=== PATIENT | male | born 1965 | race Caucasian/White ===

== ENCOUNTER 2020-05-31 08:16 | Emergency (ER) | payer OTHER, SELFPAY ==
--- NOTE | ~2020-05-31 | XR_ITS ---
EXAMINATION: XR shoulder RT min 2V DATE: 05/31/2020 09:10 INDICATION: Right shoulder pain. TECHNIQUE: 4 views of right shoulder were obtained. COMPARISON: Right shoulder radiographs 09/05/2019 FINDINGS: Bone alignment is normal. No fracture. There is mild osteoarthritis of glenohumeral joint a nd moderate osteoarthritis of acromioclavicular joint. IMPRESSION: 1. Polyarticular osteoarthritis. Reviewed, dictated and finalized at location A.
--- NOTE | ~2020-05-31 | XR_ITS ---
EXAMINATION: XR chest 2V DATE: 05/31/2020 09:10 INDICATION: Right chest pain. TECHNIQUE: Frontal and lateral views of the chest were obtained. COMPARISON: None. FINDINGS: There is mild scarring at the lung apices. No pleural effusion or pneumothorax. The heart s ize is normal. There is a prominent left paracardial fat pad. IMPRESSION: 1. Mild scarring at the lung apices. Reviewed, dictated and finalized at location A.
[2020-05-31 08:27] VITALS: BP 149/80; PULSE 61; RESP 14; TEMP 36; O2SAT 98
--- NOTE | 2020-05-31 08:59 | ED.GENADULT ---
HPI - General Adult General Chief complaint: Extremity Injury, Upper Stated complaint: right arm pain Time Seen by Provider: 05/31/20 08:49 Source: patient and family Mode of arrival: ambulatory Limitations: no limitations History of Present Illness HPI narrative: Patient 64 years old white male wake up yesterday morning with pain at the right arm, right shoulder, right side of neck. Pain worse with movement, better with certain position. Patient denies having similar symptoms. Patient denies any trauma or new recent physical activities. Patient is healthy otherwise, not on any medications. Patient denies any fever, chills, nausea, vomiting, chest pain, shortness of breath, back pain, headache, abdominal pain or urinary symptoms. Patient did not take any pain medication today. Related Data Allergies Allergy/AdvReac Type Severity Reaction Status Date / Time naproxen [From Aleve] Allergy Hives Verified 05/31/20 08:30 Honey Bee Allergy Unknown HIVES, Uncoded 12/05/17 09:55 SWELLING Review of Systems Review of Systems: Narrative: CONSTITUTIONAL: Denies fever, chills, or sweats. EYES: Denies visual changes, redness, or discharge. ENT: Denies rhinorrhea, congestion, sore throat, or otalgia. CARDIOVASCULAR: Denies chest pain, palpitations, or edema. RESPIRATORY: Denies cough or dyspnea. GASTROINTESTINAL: Denies abdominal pain, nausea, vomiting, or diarrhea. GENITOURINARY: Denies dysuria or hematuria. SKIN: Denies rash or itching. MUSCULOSKELETAL: Denies back pain, joint pain, or myalgia. NEUROLOGIC: Denies headache, numbness, or weakness. PSYCHIATRIC: Denies anxiety or depression. PMFSH Family History Family History (Updated 11/22/16 @ 23:56 by DOCTOR UNKNOWN) Father Hypertension Malignant neoplasm of prostate, Onset Age: 55 Mother Hypertension Grandparent Carcinoma of colon, Onset Age: 50 Social History Social History Smoking status: Never smoker Alcohol intake: never Exam Narrative: Exam Narrative: General appearance: Well-developed, well-nourished Skin: Normal color Head: Normocephalic, nontraumatic Eyes: Clear conjunctiva ENT: Oropharynx normal, ears normal, nose normal Neck: Supple, nontender Chest and respiratory: Airway patent, no respiratory distress, no accessory muscle use Heart: Regular rate/rhythm Abdomen: Soft, nontender, no organomegaly, quiet bowel sounds Musculoskeletal: Diffuse tenderness of the muscle of the right upper chest, right upper back, supraclavicular and shoulder with slight limited range of motion of the shoulder, no deformity, no erythema, no rash, no focal weakness, patient able to abduct right upper extremity up to 170 degree. Neurologic: Alert and oriented ?3, FRAMING MANAGER is normal as tested, no gross motor deficit Course Course Emergency Course: Improving Reevaluation(s) Reevaluation #1: Patient feeling better after [place] intake. Patient report hives and rash after taking Aleve. Is okay with ibuprofen, naproxen and other anti-inflammatory. Date: 05/31/20 Time: 09:26 Vital Signs Vital signs: Vital Signs Temperature 36.0 C L 05/31/20 08:27 Pulse Rate 61 05/31/20 08:27 Respiratory Rate 14 05/31/20 08:27 Blood Pressure 149/80 H 05/31/20 08:27 Pulse Oximetry 98 05/31/20 08:27 Temperature 36.0 C L 05/31/20 08:27 Pulse Rate 61 05/31/20 08:27 Respiratory Rate 14 05/31/20 08:27 Blood Pressure 149/80 H 05/31/20 08:27 Pulse Oximetry 98 05/31/20 08:27 Medical Decision Making [facility] Narrative Medical decision making narrative: Patient presents with nontraumatic right upper ex patient presents with nontraumatic right arm pain. Physical exam showed no sig
[2020-05-31] MEDS: HYDROcodone/acetaminophen (*CRX) 5-325 MG TABLET 1 TAB PO (09:17)
[2020-05-31 09:40] VITALS: BP 135/75; PULSE 75; RESP 12; O2SAT 99
== END 2020-05-31 09:45 | disposition home or self-care (01) ==
PROVIDERS: Emergency Provider Emergency Medicine; PCP Family Medicine
DX: M19.011 Primary osteoarthritis, right shoulder (principal); M25.511 Pain in right shoulder
CPT/HCPCS: 71046; 73030; 99284; A9270

== ENCOUNTER 2020-05-31 18:15 | Emergency (ER) | payer OTHER, SELFPAY ==
[2020-05-31 19:11] VITALS: BP 143/81; PULSE 62; RESP 16; TEMP 36.9; O2SAT 97
--- NOTE | 2020-05-31 20:27 | ED.EXTPRO ---
HPI - Extremity Problem General Chief complaint: Extremity Problem,Nontraumatic Stated complaint: R ARM PAIN DX WITH OA EARLIER TODAY Time Seen by Provider: 05/31/20 19:42 Source: patient Mode of arrival: ambulatory Limitations: no limitations History of Present Illness HPI Narrative: This patient is a 54 year old male who presents for evaluation right arm pain. He reports he woke up with pain to right lateral shoulder yesterday. His pain has progressively worsened, and His pain seems to have moved down right upper and into his right posterior neck. He states the severity of the pain waxes and wanes. He was evaluated early today in the ER with an xray of his shoulder and his chest. He was diagnosed with arthritis and [facility] [place] [facility] He reports his pain is still severe at times and he would like some thing to help him sleep through the night. He denies associated chest pain, abdominal pain, nausea, vomiting or fever. He does feels some numbness, tingling to his right thumb. Related Data Allergies Allergy/AdvReac Type Severity Reaction Status Date / Time naproxen [From Aleve] Allergy Hives Verified 05/31/20 08:30 Honey Bee Allergy Unknown HIVES, Uncoded 12/05/17 09:55 SWELLING Review of Systems Review of Systems: All systems reviewed & are unremarkable except as noted in HPI and below Constitutional: Constitutional: Denies chills and Denies fever(s) Cardiovascular: Cardiovascular: Denies chest pain Respiratory: Respiratory: Denies cough and Denies dyspnea Gastrointestinal: Gastrointestinal: Denies abdominal pain, Denies nausea and Denies vomiting PMF Past Medical History Medical History (Updated 06/01/20 @ 00:00 by Background Damichael) Polyarticular osteoarthritis Surgical History Surgical History (Updated 05/31/20 @ 20:38 by Jerrica Harrison MD) S/P left rotator cuff repair Family History Family History (Updated 11/22/16 @ 23:56 by DOCTOR UNKNOWN) Father Hypertension Malignant neoplasm of prostate, Onset Age: 55 Mother Hypertension Grandparent Carcinoma of colon, Onset Age: 50 Social History Social History Smoking status: Never smoker Alcohol intake: never Gender identity (if verbalized by the patient): Male Exam Const: General: no acute distress and alert Orientation/consciousness: patient oriented x3 HENMT: Head: normocephalic and atraumatic Face and sinus: face symmetric Eyes: EOM: EOMs intact bilaterally Neck: Neck: full ROM, no lymphadenopathy, trachea midline and supple Chest: Chest palpation & inspection: normal inspection of the chest Resp: Effort & Inspection: normal respiratory effort and no retractions Auscultation: clear to auscultation bilaterally Cardio: Rate: regular rate Rhythm: regular rhythm Heart sounds: no murmurs Other: bilateral strong radial pulses GI: GI Palp: Yes Soft to palpation, No Tenderness to palpation present (GI) and No Guarding due to palpation present (GI) Skin: General skin exam: normal color Rashes: no rashes Neuro: General: patient oriented x3, moves all extremities and CN's II-XI intact bilaterally Extrem: General: no pedal edema Other: FROM all extremities. TTP right posterior trapezius, no swelling, no erythema Psych: Mental Status: mental status grossly normal Affect: normal affect Course Reevaluation(s) Reevaluation #1: Patient reports he feels better. HE states he will be following up with PCP tomorrow. I discussed with with patient he may have pinched nerve in neck. No signs of ischemia. Date: 05/31/20 Time: 21:41 Vital Signs Vital signs: Vital Signs Temperature 98.4 F 05/31/20 19:11 Pulse Rate 62 05/31/20 19:11 Respiratory Rate 16 05/31/20 19:11 Blood Pressure 143/81 H 05/31/20 19:11 Pulse Oximetry 97 05/31/20 19:11 Temperature 98.4 F 05/31/20 19:11 Pulse Rate 88 05/31/20 22:53 Respiratory Rate 16 05/31/20 22:5
[2020-05-31] MEDS: ONDANSETRON HCL ODT 4 MG TABLET PO (20:29)
[2020-05-31] MEDS: methylPREDNISolone SOD SUCC 125 MG VIAL IM (20:29)
[2020-05-31] MEDS: HYDROmorphone HCL INJ (*CRX) 1 MG/ML SYR IM (20:29)
[2020-05-31 21:07] LABS: Basophils Percent Auto 0.5 % (0.2-1.2); Eosinophils Absolute Auto 0.2 K/mm3 (0-0.3); Eosinophils Percent Auto 2.5 % (0-4.4); Hematocrit 46.1 % (42.0-52.0); Hemoglobin 15.8 g/dL (14.0-18.0); Immature Granulocyte Absolute 0.02 K/mm3 (0.00-0.031); Immature Granulocyte Percent A 0.3 % (0-0.5); Lymphocytes Absolute Auto 3.27 K/mm3 (0.9-3.2); Lymphocytes Percent Auto 41.4 % (18.3-44.2); Mean Corpuscular HGB Conc 34.3 g/dl (32-36); Mean Corpuscular Hemoglobin 30.4 pg (26-34); Mean Corpuscular Volume 88.7 fl (80-100); Mean Platelet Volume 10.1 fl (7.4-10.4); Monocytes Absolute Auto 0.9 K/mm3 (0.1-0.6); Monocytes Percent Auto 11.4 % (2.6-8.5); Neutrophils Absolute Auto 3.5 K/mm3 (1.3-6.7); Neutrophils Percent Auto 43.9 % (45.5-73.1); Platelet Count Result 237 k/mm3 (150-375); Red Cell Distribution Width 12.8 % (11.5-14.5); White Blood Count 7.9 K/mm3 (4.5-10.0)
[2020-05-31 21:16] LABS: Prothrombin Time 13.1 Seconds (11.1-14.7)
[2020-05-31 21:17] LABS: Partial Thromboplastin Time 27.7 SECONDS (22.3-36.8)
[2020-05-31 21:19] LABS: D Dimer 0.27 ug/mL (<0.48)
[2020-05-31 21:20] LABS: Anion Gap 4 mmol/L (8-16); Blood Urea Nitrogen 13 mg/dL (9-20); Carbon Dioxide 30 mmol/L (22-30); Chloride 106 mmol/L (98-107); Estimated Glomerular Filt Rate > 60; Glucose 101 mg/dL (75-110); Potassium 4.1 mmol/L (3.4-5.0); Sodium 140 mmol/L (137-145)
[2020-05-31 21:21] LABS: CRP < 0.5 mg/dL (<1.0); Calcium 8.7 mg/dL (8.4-10.2); Creatine Kinase 140 U/L (55-170)
[2020-05-31 22:53] VITALS: BP 146/88; PULSE 88; RESP 16; O2SAT 97
== END 2020-05-31 22:00 | disposition home or self-care (01) ==
PROVIDERS: Emergency Provider General Practice; PCP Family Medicine
DX: M25.511 Pain in right shoulder (principal); M54.12 Radiculopathy, cervical region; M19.90 Unspecified osteoarthritis, unspecified site
CPT/HCPCS: 36415; 80048; 82550; 85025; 85380; 85610; 85730; 86140; 96372; 99284; A9270; J1170; J2930

== ENCOUNTER 2020-06-09 14:39 | Outpatient (CLI) | payer OTHER, SELFPAY ==
--- NOTE | ~2020-06-09 | XR_ITS ---
XR cervical spine 4-5V 06/09/2020 15:15 Indication: Neck pain Procedure: 4 views of the cervical spine Comparison: No prior studies for comparison. Findings: Reversal of cervical lordosis. There is degenerative anterolisthesis at C4-5. There is disc narrowing and endplate hypertrophy at C5-6 and C6-7. No prevertebral soft tissue swelling. No acute fracture or traumatic malalignment. Odontoid process within normal limits. Mild multilevel uncinate h ypertrophy. Lung apices are normal. Impression: 1: Moderate cervical spondylosis. Reviewed, dictated and finalized at location B. Impression: 1: Moderate cervical spondylosis.
== END 2020-06-09 14:40 | disposition home or self-care (01) ==
LOC: ANHIMG 14:47
PROVIDERS: PCP Family Medicine; Visit Provider Family Medicine
DX: M47.22 Other spondylosis with radiculopathy, cervical region (principal)
CPT/HCPCS: 72050

== ENCOUNTER 2020-10-18 09:40 | Outpatient (CLI) | payer OTHER, SELFPAY ==
--- NOTE | ~2020-10-18 | US_ITS ---
EXAMINATION: US right upper quadrant DATE: 10/18/2020 10:14 INDICATION: Right-sided abdominal pain TECHNIQUE: Multiple grayscale and Doppler ultrasound images of the abdomen were obtained. COMPARISON: None FINDINGS: The pancreatic head and body are normal in appearance. The pancreatic tail is not visualized. Liver has normal echogenicity and contour, with a smooth surface. No liver lesion identified. No intrahepat ic biliary duct dilation suspected. Portal venous flow was seen in the hepatopetal, normal direction and has normal Doppler waveform. The gallbladder is normal in appearance. There is no cholelithiasis . The common bile duct measures 4 mm, which is normal. Sonographic Patterson sign was reported as negati ve by the tobacco classer. IMPRESSION: 1. Normal right upper quadrant ultrasound. Reviewed, dictated and finalized at location B. OUND SPECIALIST
== END 2020-10-18 09:41 | disposition home or self-care (01) ==
LOC: ANHIMG 09:44
PROVIDERS: PCP Family Medicine; Visit Provider Family Medicine
DX: R10.9 Unspecified abdominal pain (principal)
CPT/HCPCS: 76705

== ENCOUNTER 2020-11-13 09:30 | Outpatient (CLI) | payer OTHER, SELFPAY ==
--- NOTE | ~2020-11-13 | NM_ITS ---
EXAMINATION: NM hepatobiliary w pharm EXAM DATE: 11/13/2020 11:43 INDICATION: Right upper quadrant pain. TECHNIQUE: 4 mCi Tc-99m mebrofenin (Choletec) was administered intravenously. Scintigraphic images o f the abdomen were obtained for one hour. At the 1 hour time point, 1.8 mcg sincalide (Kinevac) was a dministered by slow intravenous infusion, and imaging was continued for 30 minutes. Gallbladder eject ion fraction was calculated by the technologist. There is no prior study for comparison. FINDINGS: There is normal clearance of radiotracer from the blood pool. There is homogeneous tracer u ptake by the liver. Activity progresses to the gallbladder and bowel. The gallbladder ejection fract ion (GBEF) is 79 % (most patients with gallbladder dysfunction have GBEF < 35%, but there is overlap with the normal range of 10-90%). IMPRESSION: Gallbladder ejection fraction 79%, within normal range. Reviewed, dictated and finalized at location A.
== END 2020-11-13 09:31 | disposition home or self-care (01) ==
PROVIDERS: PCP Family Medicine; Visit Provider Nurse Practitioner Family
DX: R10.9 Unspecified abdominal pain (principal); R19.7 Diarrhea, unspecified
CPT/HCPCS: 78227; A9537; J2805

== ENCOUNTER 2022-01-08 08:44 | Outpatient (CLI) | payer OTHER, SELFPAY ==
--- NOTE | ~2022-01-08 | XR_ITS ---
EXAMINATION: XR hip LT min 2V DATE: 01/08/2022 09:06 INDICATION: Worsening lateral left hip pain TECHNIQUE: Anteroposterior and frog-leg lateral views of the left hip were obtained. COMPARISON: None. FINDINGS: Alignment is normal. No fracture. Left hip and sacral iliac joint spaces are normal. Mild osteoarthri tis at the right sacral iliac joint. There are couple tiny surgical clips at the left groin. Soft tis sues are unremarkable. IMPRESSION: 1. Normal left hip. Reviewed, dictated and finalized at location B. IMPRESSION: 1. Normal left hip.
== END 2022-01-08 08:45 | disposition home or self-care (01) ==
PROVIDERS: PCP Family Medicine; Visit Provider Physician Assistant
DX: M25.552 Pain in left hip (principal); I99.8 Other disorder of circulatory system
CPT/HCPCS: 73502

== ENCOUNTER 2022-01-21 14:59 | Outpatient (CLI) | payer OTHER, SELFPAY ==
--- NOTE | ~2022-01-21 | US_ITS ---
EXAMINATION:US venous doppler LE LT INDICATION:Left hip pain TECHNIQUE: Multiple grayscale, color flow and Doppler images of the left lower extremity deep venous systems were obtained and reviewed. COMPARISON:No prior studies for comparison. FINDINGS: The common femoral, superficial femoral and popliteal veins demonstrate normal respiratory variation, augmentation and compressibility. Color flow is also seen within the posterior tibial, pe roneal, greater saphenous and profunda veins. IMPRESSION: 1: No lower extremity deep venous thrombosis. Reviewed, dictated and finalized at location B.
== END 2022-01-21 15:00 | disposition home or self-care (01) ==
PROVIDERS: PCP Family Medicine; Visit Provider Physician Assistant
DX: I99.8 Other disorder of circulatory system (principal); M25.552 Pain in left hip
CPT/HCPCS: 93971

== ENCOUNTER 2022-08-15 10:36 | Outpatient (CLI) | payer OTHER, SELFPAY ==
--- NOTE | ~2022-08-15 | XR_ITS ---
Cervical Spine: AP, lateral, open-mouth views Clinical History: Right-sided paresthesias Findings: There is mild reversal normal cervical lordosis. No fracture seen. Minimal grade 1 anteroli sthesis of C4 over C5 present. There is moderate degenerative disc change at C6-C7, with mild degener ative disc change at C5-C6. The intervertebral disc spaces are well maintained. Pre-vertebral soft ti ssues are unremarkable. Impression: Minimal grade 1 anterolisthesis of C4 over C5. Degenerative changes and reversal of the cervical lordosis, as detailed above. Reviewed, dictated and finalized at location . T TOSSER Impression: Minimal grade 1 anterolisthesis of C4 over C5. Degenerative changes and reversal of the cervical lordosis, as detailed above.
== END 2022-08-15 10:37 | disposition home or self-care (01) ==
PROVIDERS: PCP Family Medicine; Visit Provider Nurse Practitioner Family
DX: M54.12 Radiculopathy, cervical region (principal); M50.30 Other cervical disc degeneration, unspecified cervical region
CPT/HCPCS: 72040